=== PATIENT | male | born 1995 | race African-American/Black ===

== ENCOUNTER 2017-05-19 00:51 | Observation (INO) | payer OTHER ==
[~2017-05-19] VITALS: Ht 175.3 cm; Wt 73.1 kg
[~2017-05-19 00:51] MED LIST: CEPH500C3 PO; TYLE3 PO; ZITHTAB PO
[2017-05-19 00:57] VITALS: BP 130/79; PULSE 73; TEMP 98.5; O2SAT 99
[2017-05-19] MEDS ORDERED: KETOROLAC TROMETHAMINE 30 MG/ML (IVP) VIAL IV PUSH ONE (01:30)
[2017-05-19] MEDS ORDERED: SODIUM CHLOR 0.9% 1000 ML INJ 1,000 ML IV ONE (01:30)
[2017-05-19 02:10] LABS: HEMATOCRIT 37.7 % (39.0-51.0); HEMOGLOBIN 12.7 GM/DL (13.0-17.0); MEAN CELL VOLUME 86.2 FL (80.0-100.0); MEAN CORPUSCULAR HGB CONC 33.7 % (32.0-36.0); MEAN PLATELET VOLUME 8.9 FL (7.0-11.0); PLATELET COUNT 287 TH/MM3 (150-450); RED BLOOD COUNT 4.37 MIL/MM3 (4.50-5.90); RED CELL DISTRIBUTION WIDTH 11.7 % (11.6-17.2); WHITE BLOOD COUNT 8.4 TH/MM3 (4.0-11.0)
--- NOTE | 2017-05-19 02:18 | RADRPT ---
EXAM DATE/TIME: 05/19/2017 01:34 [facility] COMPARISON: No previous studies available for comparison. INDICATIONS : Left testicular pain. MEDICAL HISTORY : Testicular pain. SURGICAL HISTORY : ORIF left arm. ENCOUNTER: Initial ACUITY: 3 days PAIN SCORE: 9/10 LOCATION: Bilateral testicles. MEASUREMENTS: RIGHT TESTICLE: 4.1 x 2.3 x 1.9cm LEFT TESTICLE: 3.8 x 2.4 x 1.5cm FINDINGS: RIGHT TESTICLE: Homogeneous echotexture without intra or extratesticular mass. Blood flow is symmetric and within no rmal limits. No hydrocele or varicocele. Epididymis is within normal limits. LEFT TESTICLE: Diffusely diminished echogenicity. Diminished Doppler signal and color flow with appearance worrisome for torsion. Moderate hydrocele. SCROTUM: Within normal limits. CONCLUSION: Findings worrisome for left testicular torsion Dani Palacios MD on May 19, 2017 at 2:13 Board Certified Radiologist. This report was verified electronically.
[2017-05-19 02:21] LABS: BICARBONATE 25.3 MEQ/L (21.0-32.0)
[2017-05-19 02:24] LABS: CREATININE 0.92 MG/DL (0.60-1.30)
[2017-05-19 02:40] LABS: BANDS 1 % (0-6); LYMPHOCYTES 18 % (9-44); MONOCYTES 6 % (0-8); NEUTROPHIL # MANUAL DIFF 6.4 TH/MM3 (1.8-7.7); POLYS (SEG NEUTROPHILS) 75 % (16-70)
--- NOTE | 2017-05-19 02:42 | PD ---
HPI Chief Complaint: Complaint Time Seen by Provider: 00:58 Travel History International Travel<30 days: No Contact w/Intl Traveler<30days: No Traveled to known affect area: No History of Present Illness HPI 22-year-old male presents to the emergency department by private transportation for complaint of left flank pain and groin pain 5 days. Patient has noted over the past 2 days increasing left groin pain radiating to the testicle. Patient had vomiting this evening. Patient denies fever chills dysuria frequency urgency hematuria or penile discharge. Patient denies any groin trauma. Patient has not noticed any change in the appearance or suspension of the testicle and has not noticed any scrotal edema. Patient rates his pain 6/ 10 in intensity. Patient states that he's been seen at [facility] and is scheduled to have an MRI of his left upper extremity because of left arm pain. Patient has had no fever or chills. PFSH Past Medical History Narrative Medical negative past medical history left arm surgery no tobacco use alcohol use substance use: Nursing notes reviewed Cardiovascular Problems: No Developmental Delay: No Diminished Hearing: No Neurologic: No Respiratory: No Immunizations Current: Yes Sickle Cell Disease: No Social History Alcohol Use: No Tobacco Use: No Substance Use: No Allergies-Medications (Allergen,Severity, Reaction): Coded Allergies: No Known Allergies (Verified Adverse Reaction, Unknown, 05/17/17) Reported Meds & Prescriptions Reported Meds & Active Scripts Active Zithromax Z-Erlin (Azithromycin) 250 Mg Dspk 250 Mg PO DIRECTED 500 MG (2 tabs) day 1, then 1 tab days 2-5. Tylenol #3 (Acetaminophen/Codeine Phosphate) Acetaminophen 300/30 Codeine Tab 1 Tab PO Q6H PRN FOR PAIN Keflex (Cephalexin Monohydrate) 500 Mg Cap 500 Mg PO Q6 Review of Systems Except as stated in HPI: all other systems reviewed are Neg Physical Exam Narrative GENERAL: Well-developed well-nourished male in no apparent distress SKIN: Warm and dry. HEAD: Normocephalic. EYES: No scleral icterus. No injection or drainage. NECK: Supple, trachea midline. No JVD or lymphadenopathy. CARDIOVASCULAR: Regular rate and rhythm without murmurs, gallops, or rubs. RESPIRATORY: Breath sounds equal bilaterally. No accessory muscle use. GASTROINTESTINAL: Abdomen soft, non-tender, nondistended. : Circumcised male bilaterally descended testicles thickening of the cord no hernia no high riding testicle positive cremasteric reflex MUSCULOSKELETAL: No cyanosis, or edema. BACK: Nontender without obvious deformity. No CVA tenderness. Data Data Last Documented VS Vital Signs Date Time Temp Pulse Resp B/P (MAP) Pulse Ox O2 Delivery O2 Flow Rate FiO2 05/19/17 02:51 98.6 78 16 128/69 (88) 98 Room Air Orders Orders Us Testicles W Doppler (05/19/17 ) Ketorolac Inj (Toradol Inj) (05/19/17 01:30) Complete Blood Count With Diff (05/19/17 01:24) Basic Metabolic Panel (Bmp) (05/19/17 01:24) Urinalysis - C+S If Indicated (05/19/17 01:24) Sodium Chlor 0.9% 1000 Ml Inj (Ns 1000 M (05/19/17 01:30) Ct Abd/Pel W/O Iv Contrast (05/19/17 ) NPO (05/19/17 03:26) Sodium Chlor 0.9% 1000 Ml Inj (Ns 1000 M (05/19/17 03:30) Admit Order (Ed Use Only) (05/19/17 ) Vital Signs (Adult) Q4H (05/19/17 03:48) Diet Npo (05/19/17 Breakfast) Activity Bed Rest (05/19/17 03:48) Notify Dr: Other (05/19/17 03:48) Labs Laboratory Tests Test 05/19/17 02:00 05/19/17 02:44 White Blood Count 8.4 TH/MM3 Red Blood Count 4.37 MIL/MM3 Hemoglobin 12.7 GM/DL Hematocrit 37.7 % Mean Corpuscular Volume 86.2 FL Mean Corpuscular Hemoglobin 29.0 PG Mean Corpuscular Hemoglobin Concent 33.7 % Red Cell Distribution Width 11.7 % Platelet Count 287 TH/MM3 Mean Platelet Volume 8.9 FL CBC Comment AUTO DIFF Differential Total Cells Counted 100 Neutrophils % (Manual) 75 % Band Neutrophils % 1 % Lymphocytes % 18 % Monocytes % 6 % Neutrophils # (Manual) 6.4 TH/MM3 Differential Comment FINAL DIFF MANUAL Platelet Estimate NORMAL Platelet Morphology Comment NORMAL Red Cell Morphology Comment NORMAL Blood Urea Nitrogen 11 MG/DL Creatinine 0.92 MG/DL Random Glucose 118 MG/DL Calcium Level 9.0 MG/DL Sodium Level 131 MEQ/L Potassium Level 3.5 MEQ/L Chloride Level 96 MEQ/L Carbon Dioxide Level 25.3 MEQ/L Anion Gap 10 MEQ/L Estimat Glomerular Filtration Rate 127 ML/MIN Urine Color KAYLA Urine Turbidity CLEAR Urine pH 6.0 Urine Specific [place] 1.017 Urine Protein TRACE mg/dL Urine Glucose (UA) NEG mg/dL Urine Ketones 80 OR GREATER mg/dL Urine Occult Blood TRACE Urine Nitrite NEG Urine Bilirubin NEG Urine Leukocyte Esterase NEG Urine RBC 0-3 /hpf Urine WBC 0-2 /hpf Urine Squamous Epithelial Cells 0-5 /hpf Urine Bacteria NONE /hpf Microscopic Urinalysis Comment CULT NOT INDICATED MDM Medical Decision Making Medical Screen Exam Complete: Yes Emergency Medical Condition: Yes Medical Record Reviewed: Yes Interpretation(s) Last Impressions Scrotum Ultrasound 05/19/17 0000 Signed Impressions: Service Date/Time: Friday, May 19, 2017 01:34 - CONCLUSION: Findings worrisome for left testicular torsion Dani Palacios MD Abdomen/Pelvis CT 05/19/17 0000 Signed Impressions: Service Date/Time: Friday, May 19, 2017 02:47 - CONCLUSION: Possible mild left ureteral distention and periureteric induration. No evidence of stone. The appearance may reflect infection, inflammation or passed stone. Dani Palacios MD CBC & BMP Diagram 05/19/17 02:00 Calcium Level 9.0 Vital Signs Date Time Temp Pulse Resp B/P (MAP) Pulse Ox O2 Delivery O2 Flow Rate FiO2 05/19/17 02:51 98.6 78 16 128/69 (88) 98 Room Air 05/19/17 00:57 98.5 73 130/79 (96) 99 Differential Diagnosis Epididymitis testicular torsion urethritis renal colic UTI Narrative Course IV access obtained patient kept nothing by mouth IV fluids administered Toradol 30 mg IV administered urinalysis pending Ultrasound testicle ordered At 2:30 ultrasound of testicle read as concerning for torsion of the left testicle patient reexamined; cremasteric reflex present and patient states pain is 6/10 intensity. Stat call placed to urology --@ 2:[address] Ortega -- CT sta and UA result --call back Physician Communication Physician Communication call placed to urology; @ 3:24 stat transfer to [facility] for orchiopexy; EVAC --3: 40 notified emergent transfer to [facility] for surgery --" units not available "; @ 4 :12 AM EVAC at the bedside Diagnosis Primary Impression: Left testicular torsion Pat Salinas MD May 19, 2017 02:42
[2017-05-19 02:51] VITALS: BP 128/69; PULSE 78; RESP 16; TEMP 98.6; O2SAT 98
[2017-05-19 02:51] LABS: GLUCOSE,URINE NEG (NEG); KETONE, URINE 80 OR GREATER mg/dL (NEG); NITRITE,URINE NEG (NEG); URINE LEUKOCYTE ESTERASE NEG (NEG)
[2017-05-19 02:56] LABS: BILIRUBIN, URINE NEG (NEG); BLOOD, URINE TRACE (NEG); RBC, URINE 0-3 /hpf (0-3); SQUAMOUS EPITHELIAL CELL URINE 0-5 /hpf (0-5); URINE COLOR AMBER (YELLW/STRAW); WBC, URINE 0-2 /hpf (0-5)
--- NOTE | 2017-05-19 03:13 | RADRPT ---
EXAM DATE/TIME: 05/19/2017 02:47 [facility] COMPARISON: No previous studies available for comparison. INDICATIONS : Left flank pain for 5 days. Nausea and vomiting ORAL CONTRAST: No oral contrast ingested. RADIATION DOSE: 7.58 CTDIvol (mGy) MEDICAL HISTORY : None SURGICAL HISTORY : None. ENCOUNTER: Initial ACUITY: 4 - 6 days PAIN SCALE: 5/10 LOCATION: Left flank TECHNIQUE: Volumetric scanning of the abdomen and pelvis was performed. Using automated exposure control and ad justment of the mA and/or kV according to patient size, radiation dose was kept as low as reasonably achievable to obtain optimal diagnostic quality images. DICOM format image data is available electro nically for review and comparison. FINDINGS: LIVER: Visualized portions grossly unremarkable SPLEEN: Visualized portions grossly unremarkable PANCREAS: Within normal limits. KIDNEYS: Possible slight distention of the left ureter and mild left periureteric induration which is nonspeci fic. No evidence of stones. ADRENAL GLANDS: Within normal limits. VASCULAR: There is no aortic aneurysm. BOWEL/MESENTERY: The stomach, small bowel, and colon demonstrate no acute abnormality. There is no free intraperitone al air or fluid. ABDOMINAL WALL: Within normal limits. RETROPERITONEUM: There is no lymphadenopathy. BLADDER: No wall thickening or mass. REPRODUCTIVE: Within normal limits. INGUINAL: There is no lymphadenopathy or hernia. MUSCULOSKELETAL: Within normal limits for patient age. CONCLUSION: Possible mild left ureteral distention and periureteric induration. No evidence of stone. The appeara nce may reflect infection, inflammation or passed stone. Dani Palacios MD on May 19, 2017 at 3:06 Board Certified Radiologist. This report was verified electronically.
[2017-05-19] MEDS ORDERED: SODIUM CHLOR 0.9% 1000 ML INJ 1,000 ML IV SCH (03:30)
[2017-05-19 04:22] VITALS: BP 172/85; PULSE 59; RESP 16; O2SAT 98
[2017-05-19] MEDS ORDERED: CHLORHEXIDINE GLUCONATE 2 % 1 PACK (2 CLOTHS) TOPICAL PRN (05:00)
[2017-05-19] MEDS ORDERED: SODIUM CHLORID 0.9% 500 ML IV PRN (05:00)
[2017-05-19] MEDS ORDERED: METOPROLOL TARTRATE 25 MG TAB PO PRN (05:00)
[2017-05-19] MEDS ORDERED: LACTATED RINGER'S 1000 ML IV PRN (05:00)
[2017-05-19] MEDS ORDERED: POVIDONE IODINE 5% (ANTISEPSIS KIT) 4 APPLICATIONS EACH NARE PRN (05:00)
[2017-05-19] MEDS ORDERED: ACETAMINOPHEN 1000 MG/100 ML 100 ML IV ONE (06:27)
[2017-05-19] MEDS ORDERED: CEPH-460 PO (06:43)
[2017-05-19] MEDS ORDERED: PERC5TAB12 PO (06:44)
[2017-05-19] MEDS ORDERED: oxyCODONE/ACETAMINOPHEN 5 MG/325 MG TAB PO PRN (06:45)
--- NOTE | 2017-05-19 06:52 | MP ---
cc: BLAZE ORONA MD DATE OF SURGERY: 05/19/2017 PREOPERATIVE DIAGNOSIS: Possible left testicular torsion. POSTOPERATIVE DIAGNOSIS: Thrombosed left testicular cord. OPERATION: Scrotal exploration Left scrotal orchiectomy. SURGEON Blaze [place]a ANESTHESIA: Anesthesia was general NOTE Detail this is a 22-year-old gentleman who presented to the emergency room and for [place] with left flank and some groin pain for about five days, this evening it became quite intense. He presented to the emergency room in [place] a scrotal ultrasound was obtained with showed was suggested testicular torsion with compromise of blood supply. I was then notified because of the presentation was several days in duration and because of the initial physical exam by the emergency room physician which did not look like a classic testicular torsion. A CT scan was obtained which showed some nonspecific inflammation in the left distal pelvic region in the area of the ureter. But at that point I think our hands were tied we needed to explore to help resolve the issue. This was discussed with the family and with [place] and he understood that prior to going to sleep that he might very well end up losing the testicle. So he was taken to the operating room, given appropriate anesthetic. A time-out was taken for identification purposes. He was then prepped and draped in a sterile fashion. Midline scrotal incision was made in the testicle was delivered up into the wound, it did not have torsion upon initial entry into the scrotum, but the testicle of mottled as though his blood supply had been compromised and the cord all the way up to the level of the external ring was thickened and extremely indurated. Because of the testicular compromise of blood supply and the induration, I elected to go ahead and simply remove the testicle at the level of the external ring. The cord was transected and tied off with 0 Vicryl ligature x two. The wound was then appropriately closed, as was the scrotal incision and appropriately bandaged. He tolerated the procedure well, he was returned to the recovery room in stable condition. MD DES Woodard/yoni /6:16 AM /6:26 AM
[2017-05-19] MEDS ORDERED: DO NOT ADM ANY ANTICOAGULANT DRUGS PRN (07:00)
[2017-05-19 08:15] VITALS: BP 140/65; PULSE 86; RESP 18; TEMP 98.4; O2SAT 99
== END 2017-05-19 08:15 | disposition home or self-care (01) ==
LOC: PHED 00:51 → PHEDA 03:50 → HPAC 04:41
DX: N44.00 Torsion of testis, unspecified (principal); R11.10 Vomiting, unspecified; M79.602 Pain in left arm
CPT/HCPCS: 00920; 54520; 74176; 76870; 80048; 81001; 85007; 85027; 88309; 88341; 88342; 93975; 96361; 96374; 99285; G0378; J0131; J1885; J7030